=== PATIENT | male | born 1990 | race Two or more races ===

== ENCOUNTER 2025-05-17 10:07 | Emergency (ER) | payer MEDICAID, SELFPAY ==
[2025-05-17 10:44] VITALS: BP 129/85; PULSE 81; RESP 18; TEMP 36.6; O2SAT 99; BMI 29.9
--- NOTE | 2025-05-17 10:45 | XR_ITS ---
Examination: CT abdomen and pelvis without contrast. Coronal 3-D reconstructions. Sagittal 2-D reconstructions. Date and time of exam:May 17, 2025, 11:24 AM INDICATIONS: Lower abdominal pain with bilateral flank pain beginning 3 days ago. CTDI: vol (mGy): 7.6 DLP: (mGycm 458 Technique: Axial images of the abdomen have been obtained, 3 mm slice thickness Intravenous contrast material has not been administered. Low dose protocols were performed. One or more of the following dose reduction techniques were used; automated exposure control, adjustment of the mA and/or KV according to patient size, use of iterative reconstruction technique. Findings: Diffuse fatty infiltration throughout the liver No gallstones Spleen not enlarged No pancreatic or adrenal mass No renal or ureteral calculi, no hydronephrosis Aorta normal size 16mm fat-containing umbilical hernia Normal appendix No bowel obstruction Scattered colonic diverticulosis Normal seminal vesicles Normal prostate Contracted urinary bladder with urinary bladder wall thickening Intact osseous structures IMPRESSION: Diffuse significant fatty infiltration throughout the liver No renal or ureteral calculi, no hydronephrosis Normal appendix Cystitis pattern
--- NOTE | 2025-05-17 10:45 | PD.EDRME ---
Rapid Medical Screening Exam RME Arrival date/time: 05/17/25 10:07 34-year-old male with no known medical history presents to the emergency room with a chief complaint of abdominal and bilateral flank pain x 3 days I have greeted and performed a focused initial assessment of this patient. A comprehensive ED assessment and evaluation of the patient, analysis of all test results, and completion of the medical decision making process will be conducted by additional ED providers. Chief Complaint: Back Pain/Injury Vital signs: Vital Signs Temperature 98 F 05/17/25 10:44 Pulse Rate 81 05/17/25 10:44 Respiratory Rate 18 05/17/25 10:44 Blood Pressure 129/85 H 05/17/25 10:44 Pulse Oximetry (%) 99 05/17/25 10:44 Oxygen Delivery Method Room Air 05/17/25 10:44 Vital signs reviewed by provider: Yes
[2025-05-17 11:01] LABS: Basophils # (Auto) 0.0 Thou/mm3 (0.0-0.2); Basophils % (Auto) 1 % (0-2.5); Eosinophils # (Auto) 0.0 Thou/mm3 (0.0-0.5); Eosinophils % (Auto) 1 % (0-10); Hematocrit 42.0 % (41.0-53.0); Hemoglobin 14.9 g/dL (13.5-16.0); Immature Granulocytes Auto 0.01 Thou/mm3 (0.00-0.00); Lymphocytes # (Auto) 0.6 Thou/mm3 (1.0-4.8); Lymphocytes % (Auto) 18 % (10-50); Mean Corpuscular HGB Conc 35.5 g/dl (31.0-37.0); Mean Corpuscular Hemoglobin 34.0 pg (25.0-35.0); Mean Corpuscular Volume 96 fL (80-100); Monocytes # (Auto) 0.3 Thou/mm3 (0.0-0.8); Monocytes % (Auto) 9 % (0-12); Neutrophils # (Auto) 2.3 Thou/mm3 (1.8-7.7); Neutrophils % (Auto) 71 % (37-80); Nucleated Red Blood Cell # 0.00 Thou/mm3 (0.00-0.00); Nucleated Red Blood Cell % 0 /100 WBC (0); Platelet Count 84 Thou/mm3 (140-440); RDW Standard Deviation 43.0 fL (35.1-43.9); Red Blood Count 4.38 Miln/mm3 (4.50-5.90); White Blood Count 3.3 Thou/mm3 (3.8-10.6)
[2025-05-17 11:13] LABS: Collection Type, Urine Clean Catch
[2025-05-17 11:18] LABS: Alanine Aminotransferase 265 U/L (10-49); Albumin, Serum 4.8 gm/dL (3.5-5.0); Albumin/Globulin Ratio 1.5 (1.2-2.2); Alcohol, Blood Medical 22.0 mg/dL (0-10.0); Alkaline Phosphatase 125 U/L (46-116); Anion Gap 11 (7-16); Aspartate Amino Transferase 339 U/L (0-34); BUN/Creatinine Ratio 12 Ratio (12-20); Bilirubin,Total 1.7 mg/dL (0.3-1.2); Blood Urea Nitrogen 7 mg/dL (9-23); Calcium 9.2 mg/dL (8.3-10.6); Calcium (Corrected) 9.2 mg/dL (8.5-10.1); Carbon Dioxide 25.2 mMol/L (20.0-31.0); Chloride 101 mMol/L (98-107); Creatinine (Component) 0.6 mg/dL (0.6-1.3); Estimated Creatinine Clearance 167.5 mL/min (>60); Globulin 3.1 gm/dL (2.3-3.5); Glucose 98 mg/dL (74-106); Lipase 61 U/L (12-53); Osmolality,Calculated 271 (275-295); Potassium 3.9 mMol/L (3.4-5.1); Sodium 137 mMol/L (136-145); Total Protein 7.9 gm/dL (5.7-8.2); eGFR > 60 See Note
[2025-05-17 11:23] LABS: Amphetamine/Methamp Scrn,U Negative (Negative); Barbiturate Screen,Urine Negative (Negative); Benzodiazepines Screen,Urine Negative (Negative); Benzoylecgonine Screen, Ur Negative (Negative); Fentanyl Screen,Urine Negative (Negative); Opiate Screen,Urine Negative (Negative); THC Screen,Urine Negative (Negative)
[2025-05-17 11:55] LABS: Bacteria,Urine Rare; Bilirubin,Urine 1+ (Negative); Blood,Urine Negative (Negative); Color,Urine Drk-Yellow (Lt Yel-Yel); Glucose, Urine Negative (Negative); Ketones,Urine Trace (Negative); Leukocyte Esterase,Urine Negative (Negative); Nitrite,Urine Negative (Negative); PH,Urine 7.0 (5.0-7.0); Protein,Urine 1+ (Neg - Trace); RBC,Urine 1 /hpf (0-3); Specific Gravity,Urine 1.035 (1.001-1.035); Squamous Epithelial Cell,Urine < 1 /hpf (0-5); Urobilinogen,Urine OVER mg/dL (0.0-1.0); WBC,Urine 2 /hpf (0-5)
[2025-05-17 11:58] LABS: Clarity,Urine Hazy (Clear/Hazy)
--- NOTE | 2025-05-17 12:23 | EDNOTE_ITS ---
<Statement entered by Meenu Marie MD - 05/18/25 16:04> As co-signing physician, I was present and available for consult prn. I concur with the plan and care as documented by the midlevel provider. ED General RME/HPI General Chief complaint: Back Pain/Injury Stated complaint: BACK/CHEST PAIN, WT LOSS, NO APPETITE Time Seen by Provider: 05/17/25 11:17 Arrival date/time: 05/17/25 10:07 CC: Bilateral abdominal pain HPI patient admits that he drinks alcohol up to 212 packs of beer a day. Patient states he is now having some mild abdominal pain no nausea or vomiting patient states his appetite is off and he has lost 30 pounds in the last week. Patient denies fever chills chest pain shortness of breath or difficulty breathing he is awake alert oriented admitting there are times when he has a drinking binge and does not eat for 2 to 3 days. Patient was seen at [facility] who he says will give him medicines to help him get off the alcohol. He was just sent here to get checked out . RME / HPI RME / HPI narrative: 05/17/25 10:07 34-year-old male with no known medical history presents to the emergency room with a chief complaint of abdominal and bilateral flank pain x 3 days I have greeted and performed a focused initial assessment of this patient. A comprehensive ED assessment and evaluation of the patient, analysis of all test results, and completion of the medical decision making process will be conducted by additional ED providers. Related Data Allergies Allergy/AdvReac Type Severity Reaction Status Date / Time No Known Allergies Allergy Verified 05/17/25 10:10 Review of Systems Review of Systems Narrative Review of Systems: GEN: No fever, no chills, no weight loss EYES: No discharge, no visual changes, no pain HEENT: No ear pain, no congestion, no sore throat PULM: No shortness of breath, no cough, no congestion CV: No chest pain, no dyspnea on exertion, no palpitations GI: No nausea, no vomiting, no diarrhea, no pain, no constipation : No frequency, no urgency, no dysuria MUSC/SKEL: No joint pain, no back pain SKIN: No rash PSYCH: No hallucinations, no depression HEME/LYMPH: No easy bleeding or bruising tendencies NEURO: No weakness, no headache Past Medical History Social History SMOKING STATUS: Never smoker ED Exam Narrative Physical exam: [General: Not in any acute distress Head normocephalic HEENT: Eyes pupils are PERRLA EOMs are intact mouth pink moist membranes uvula is midline all the subsystems of HEENT are within acceptable limits Neck is supple nontender Chest equal chest rise nontender to palpation Respiratory: Clear to auscultation no wheezes crackles or rubs CV: Rate rhythm is regular no murmurs rubs or clicks Abdomen is soft nontender no masses positive bowel sounds all 4 quadrants Back: No CVA tenderness no spinous process tenderness from cervical spine thoracic and lumbar spine Skin: Intact no petechiae rash induration ulceration or crepitus Extremities: Moving all extremity against resistance cap refill less than 2 seconds neurosensory intact Neuro: Awake alert oriented x3 Glascow coma 15 no focal deficits] Course Quality Measures none Orders Category Date Time Status CT abdomen pelvis wo con Stat Exams 05/17/25 10:45 Completed Alcohol, Blood Medical Stat Lab 05/17/25 10:50 Completed CBC Stat Lab 05/17/25 10:50 Completed CMP [Comprehensive Metabolic Panel] Stat Lab 05/17/25 10:50 Completed Drug Screen,Urine Stat Lab 05/17/25 11:08 Completed Lipase Stat Lab 05/17/25 10:50 Completed UA [Urinalysis] Stat Lab 05/17/25 11:08 Completed Urine Culture Stat Lab 05/17/25 11:08 Received Vital Signs Vital signs: Vital Signs Temperature 98 F 05/17/25 10:44 Pulse Rate 81 05/17/25 10:44 Respiratory Rate 18 05/17/25 10:44 Blood Pressure 129/85 H 05/17/25 10:44 Pulse Oximetry (%) 99 05/17/25 10:44 Oxygen Delivery Method Room Air 05/17/25 10:44 Discharge Plan Plan Patient Disposition: HOME (Self Care) Patient condition on transfer: Stable Problem List Clinical Impression: Alcohol dependence, Transaminitis Patient/Caregiver Discharge Instructions Education Materials: Alcohol Addiction Additional Instructions: Stop drinking alcohol by slowly decreasing the volume drink every day over time. Follow-up with your PCP. Print Language: English Stand Alone Forms: [employer] Award Info., Work/School Release, Patient Portal Info Letter PA/PHYSICAL THERAPY PROFESSOR Supervising Physician PA/PHYSICAL THERAPY PROFESSOR Supervising Physician: Enrique Simms ENP MDM Clinical Information Provided by: patient Medical Records reviewed [facility] Meds/Rx considered, not ordered None Labs/Rad/Tests considered, not ordered None Chronic Illness/Social Conditions which may negatively complicate care or outcome(s)-explain: ETOH/drugs/substance abuse EKG EKG not done Labs Labs: interpreted by me Lab(s) Interpretation(s): CBC shows leukopenia, no anemia thrombocytopenia CMP shows no significant electrolyte imbalances renal impairment there is a T. bili of 1.7 and transaminitis is elevated [id number]. Lipase at 61. Urine is dark yellow 1+ protein 1+ bilirubin no other acute findings. UDS is negative Alcohol level is 22.0. Imaging Imaging interpretation: interpreted by me Imaging Interpretation(s): CT abdomen pelvis shows a diffusely fatty liver but no other acute finding. Medication Administration(s) none Diagnosis Differential Diagnosis ED Complaint MDM: Transaminitis pancreatitis cholelithiasis
== END 2025-05-17 13:13 | disposition home or self-care (01) ==
LOC: SERX 12:58
PROVIDERS: Nurse Practitioner Family; Emergency Provider Emergency Medicine; PCP Family Medicine
DX: F10.20 Alcohol dependence, uncomplicated (principal); R74.01 Elevation of levels of liver transaminase levels; R10.30 Lower abdominal pain, unspecified; R10.A3 Flank pain, bilateral; Y90.1 Blood alcohol level of 20-39 mg/100 ml
CPT/HCPCS: 36415; 74176; 80053; 80307; 80320; 81001; 83690; 85025; 87086; 99283; G0480